=== PATIENT | male | born 1960 | race Two or more races ===

== ENCOUNTER 2024-12-02 12:58 | Outpatient (CLI) | payer OTHER | END 2024-12-02 13:02 | disposition home or self-care (01) | LOC: RAD 12:58 | PROVIDERS: ATTEND Urology | DX: Z01.810 Encounter for preprocedural cardiovascular examination (principal); N40.1 Benign prostatic hyperplasia with lower urinary tract symptoms; I10 Essential (primary) hypertension; E11.9 Type 2 diabetes mellitus without complications; E78.5 Hyperlipidemia, unspecified ==